=== PATIENT | female | born 1955 | race Caucasian/White ===

== ENCOUNTER → 2022-07-20 | Outpatient (CLI) | payer MEDICARE, OTHER ==
[2022-07-20 16:20] LABS: BASO # 0.06 K/mm3 (0.02-0.10); EOS # 0.71 K/mm3 (0.04-0.40); EOS % 9.1 % (1.0-5.0); HEMATOCRIT 42.3 % (37.0-47.0); HEMOGLOBIN 13.4 g/dL (12.5-16.0); LYMPH# 2.74 K/mm3 (1.50-4.00); MEAN CELL VOLUME 100 fl (78-100); MEAN CORPUSCULAR HEMOGLOBIN 32 pg (27-31); MEAN CORPUSCULAR HGB CONC 32 g/dL (33-37); MEAN PLATELET VOLUME 9.5 fl (7.4-10.4); MONO # 0.55 K/mm3 (0.20-0.80); PLATELET COUNT 266 K/mm3 (130-400); RED BLOOD COUNT 4.25 M/mm3 (4.10-5.30); RED CELL DISTRIBUTION WIDTH 12.4 % (11.5-14.5); WHITE BLOOD COUNT 7.8 K/mm3 (4.8-10.8)
[2022-07-20 16:25] LABS: ALBUMIN 4.4 g/dL (3.4-4.8); POTASSIUM 3.5 mmol/L (3.5-5.1)
[2022-07-20 16:26] LABS: CALCIUM 9.6 mg/dL (8.3-10.5)
[2022-07-20 16:27] LABS: TOTAL PROTEIN 7.5 g/dL (6.2-8.1)
[2022-07-20 16:29] LABS: TOTAL BILIRUBIN 0.2 mg/dL (0.2-1.2)
== END ==
LOC: LAB 15:39
PROVIDERS: Physician Assistant
DX: Z00.00 Encounter for general adult medical examination without abnormal findings (principal); Z12.31 Encounter for screening mammogram for malignant neoplasm of breast; Z13.820 Encounter for screening for osteoporosis; M50.323 Other cervical disc degeneration at C6-C7 level; M51.34 Other intervertebral disc degeneration, thoracic region; M51.36 Other intervertebral disc degeneration, lumbar region; F90.9 Attention-deficit hyperactivity disorder, unspecified type; H91.90 Unspecified hearing loss, unspecified ear; F32.9 Major depressive disorder, single episode, unspecified; E06.3 Autoimmune thyroiditis; G47.00 Insomnia, unspecified; N95.1 Menopausal and female climacteric states; E55.9 Vitamin D deficiency, unspecified; K90.9 Intestinal malabsorption, unspecified

== ENCOUNTER → 2022-11-29 | Outpatient (CLI) | payer MEDICARE, OTHER, MEDICAID | LOC: RAD 12:26 | DX: M51.35 Other intervertebral disc degeneration, thoracolumbar region (principal); M50.30 Other cervical disc degeneration, unspecified cervical region; M47.815 Spondylosis without myelopathy or radiculopathy, thoracolumbar region; M48.061 Spinal stenosis, lumbar region without neurogenic claudication; M47.813 Spondylosis without myelopathy or radiculopathy, cervicothoracic region; M48.02 Spinal stenosis, cervical region; M40.46 Postural lordosis, lumbar region ==

== ENCOUNTER → 2023-09-08 | Outpatient (CLI) | payer MEDICARE, MEDICAID ==
[2023-09-08 15:13] LABS: BASO # 0.03 K/mm3 (0.02-0.10); EOS # 0.22 K/mm3 (0.04-0.40); HEMATOCRIT 45.5 % (37.0-47.0); HEMOGLOBIN 14.3 g/dL (12.5-16.0); LYMPH# 2.48 K/mm3 (1.50-4.00); MEAN CELL VOLUME 101 fl (78-100); MEAN CORPUSCULAR HEMOGLOBIN 32 pg (27-31); MEAN CORPUSCULAR HGB CONC 31 g/dL (33-37); MEAN PLATELET VOLUME 10.7 fl (7.4-10.4); MONO # 0.52 K/mm3 (0.20-0.80); NEU # 4.06 K/mm3 (1.40-6.50); PLATELET COUNT 281 K/mm3 (130-400); RED BLOOD COUNT 4.52 M/mm3 (4.10-5.30); WHITE BLOOD COUNT 7.3 K/mm3 (4.8-10.8)
[2023-09-08 15:17] LABS: ALBUMIN 4.5 g/dL (3.4-4.8)
[2023-09-08 15:18] LABS: CALCIUM 9.9 mg/dL (8.3-10.5)
[2023-09-08 15:19] LABS: TOTAL PROTEIN 7.9 g/dL (6.2-8.1)
[2023-09-08 15:21] LABS: TOTAL BILIRUBIN 0.7 mg/dL (0.2-1.2)
== END ==
LOC: LAB 14:44
PROVIDERS: Physician Assistant
DX: Z13.220 Encounter for screening for lipoid disorders (principal); E06.3 Autoimmune thyroiditis; K90.9 Intestinal malabsorption, unspecified; R59.0 Localized enlarged lymph nodes; E55.9 Vitamin D deficiency, unspecified; G47.00 Insomnia, unspecified; F32.9 Major depressive disorder, single episode, unspecified; F90.9 Attention-deficit hyperactivity disorder, unspecified type; M26.609 Unspecified temporomandibular joint disorder, unspecified side; K21.9 Gastro-esophageal reflux disease without esophagitis; R05.9 Cough, unspecified; E53.8 Deficiency of other specified B group vitamins

== ENCOUNTER → 2024-06-17 | Outpatient (CLI) | payer MEDICARE | LOC: RAD 13:42 | DX: J90 Pleural effusion, not elsewhere classified (principal) ==